=== PATIENT | female | born 1995 | race Hispanic/Latino ===

== ENCOUNTER 2017-07-05 15:13 | Emergency (ER) | payer MEDICAID ==
[2017-07-05 15:59] VITALS: BP 125/81
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
== END 2017-07-05 18:21 | disposition home or self-care (01) ==
LOC: ED 15:13
DX: M25.512 Pain in left shoulder (principal); F17.200 Nicotine dependence, unspecified, uncomplicated; V89.2XXA Person injured in unspecified motor-vehicle accident, traffic, initial encounter
CPT/HCPCS: 99282